=== PATIENT | male | born 1940 | race Caucasian/White ===

== ENCOUNTER → 2017-06-07 15:43 | Outpatient (CLI) | payer MEDICARE ==
[2014-12-30 07:21] VITALS: BMI 26.7
[~2017-06-07 15:43] MED LIST: ASPIRIN325 MG PO; BENADRYL INJ50 MG/ML IV; BENADRYL25 MG PO; BISACODYL5 MG PO; CARDURA2 MG PO; COLACE100 MG PO; COUMADIN2.5 MG PO; COUMADIN5 MG PO; FISH OIL 1,0001 CA1 PO; FISH OIL 1,2001 CA1 PO; LAMISIL250 MG PO; MULTI-DAY VITAM1 TAB PO; NEURONTIN 300300 MG PO; ONDANSETRON4 MG/2 M3 IV; OXYCONTIN20 MG PO; PERCOCET 10/3251 TA1 PO; ROBAXIN-750750 MG PO; SALINE FLUSH10 ML INJ; ULTRAM50 MG PO; VITAMIN C250 MG PO; VOLTAREN75 MG PO; ZOCOR40 MG PO
[2017-06-07 16:36] LABS: BASOPHILS 0.3 % (0-2); EOSINOPHILS 1.5 % (0-7); HEMATOCRIT 39.6 % (42.0-54.0); HEMOGLOBIN 13.3 g/dL (13.5-17.5); IMMATURE GRANULOCYTES 0.1 % (0-5); LYMPHOCYTES 21.6 % (15-50); MCH 33.1 pg (26.0-34.0); MCHC 33.6 g/dL (31.0-37.0); MCV 98.5 fL (80.0-100.0); MEAN PLATELET VOLUME 10.5 fL (7.4-10.4); MONOCYTES 9.4 % (2-11); NEUTROPHILS 67.1 % (40-80); PLATELET COUNT 171 10x3/uL (130-400); RBC 4.02 10x6/uL (4.20-6.10); RDW 13.2 % (11.5-14.5); WBC 6.7 10x3/uL (4.8-10.8)
[2017-06-07 17:53] LABS: ERYTHROCYTE SEDIMENTATION RATE 3 mm/hr (0-20)
== END | disposition home or self-care (01) ==
LOC: D.LABREF 15:43
PROVIDERS: Orthopaedic Surgery
DX: M25.552 Pain in left hip (principal)

== ENCOUNTER → 2017-06-13 10:32 | Outpatient (CLI) | payer MEDICARE ==
[2014-12-30 07:21] VITALS: BMI 26.7
== END | disposition home or self-care (01) ==
LOC: D.MRI 10:32
DX: M54.16 Radiculopathy, lumbar region (principal)

== ENCOUNTER 2017-06-20 13:34 | Emergency (ER) | payer MEDICARE ==
[2014-12-30 07:21] VITALS: BMI 26.7
[2017-06-22] MEDS ORDERED: HYDROCODON-ACE1 EAC7 PO (09:44)
== END 2017-06-20 14:40 | disposition home or self-care (01) ==
LOC: D.ER 13:34
DX: M54.5 Low back pain (principal)

== ENCOUNTER 2017-06-23 08:58 | Day surgery (SDC) | payer MEDICARE ==
[2017-06-22 10:12] LABS: HEMATOCRIT 44.8 % (42.0-54.0); HEMOGLOBIN 15.2 g/dL (13.5-17.5); MCH 33.5 pg (26.0-34.0); MCHC 33.9 g/dL (31.0-37.0); MCV 98.7 fL (80.0-100.0); RBC 4.54 10x6/uL (4.20-6.10); RDW 13.2 % (11.5-14.5); WBC 10.3 10x3/uL (4.8-10.8)
--- NOTE | ~2017-06-23 | OP ---
PATIENT NAME: ARUNA CATES MEDICAL RECORD: [id number] :44 LOCATION:[facility] ADMISSION DATE: SURGEON: KASANDRA VANCE MD DATE OF OPERATION: 06/23/2017 PREOPERATIVE DIAGNOSES: Disk herniation L3-L4 left, lumbar spinal stenosis and foraminal stenosis L3-L4 left. PROCEDURE: Lumbar laminectomy L3-L4 left with foraminotomy and medial facetectomy and diskectomy L3-L4 left. SURGEON: Kasandra Vance MD PLACE OF SERVICE: [facility]. DESCRIPTION AND TECHNIQUE: After induction of general endotracheal anesthesia, the patient was rolled prone on a [place] frame. Lumbar spine was prepped and draped in usual sterile fashion. Fluoroscopic x-ray and spinal needle localized the L3-L4 interspace on the left side. A stab incision was created with a #11 blade and series of dilators were used to advance a METRx retractor to the L3-L4 interspace on the left side. Level was confirmed with fluoroscopic x-ray. A microscope and Midas Obdulio drill were used to perform a laminectomy, medial facetectomy and foraminotomy at L3 and L4 on the left. Hypertrophied ligamentum flavum was removed with Cloward rongeurs. Following this, the L4 nerve root was obviously compressed by disk herniation. Disk material was removed from the spinal canal with pituitary rongeurs. Additional material was removed from the posterior one-third of the disk space. Following this, the nerve root was decompressed well. Meticulous hemostasis was maintained throughout the wound. The wound was irrigated with copious amounts of Ancef irrigant solution. The fascia was closed with 2-0 Vicryl suture, the subdermal layer was closed with 3-0 Vicryl suture. The skin was closed with kendall. A sterile dressing was applied to the wound. The patient was awakened in good condition and taken to recovery. All counts were reported as correct. Estimated blood loss was minimal. TRANSINT:[id number] Voice Confirmation ID: [id number] DOCUMENT ID: [id number] KASANDRA VANCE MD at 0831 CC: [id number] DICTATION DATE: 07/14/17 1359 BUSINESS SYSTEM CONSULTANT: 07/14/17 1438 [facility] 06/23/17 [place] [id number]
[~2017-06-23 08:58] MED LIST changes: +HYDROCODON-ACE1 EAC7 PO
[2017-06-23 10:18] VITALS: BP 152/74; BMI 26.7
== END 2017-06-23 20:00 | disposition home or self-care (01) ==
LOC: D.OPS 08:58 → D.PAN 12:00 → D.OPS 12:00
PROVIDERS: Anesthesiology
DX: M51.16 Intervertebral disc disorders with radiculopathy, lumbar region (principal); Z01.812 Encounter for preprocedural laboratory examination

== ENCOUNTER → 2017-08-17 08:01 | Outpatient (CLI) | payer MEDICARE | END | disposition home or self-care (01) | LOC: D.MRI 08:01 | DX: M48.56XA Collapsed vertebra, not elsewhere classified, lumbar region, initial encounter for fracture (principal); X58.XXXA Exposure to other specified factors, initial encounter; Y93.89 Activity, other specified; Y92.89 Other specified places as the place of occurrence of the external cause ==